=== PATIENT | female | born 1990 | race Two or more races ===

== ENCOUNTER 2021-12-08 07:00 | Inpatient (IN) ==
[2021-12-08] MEDS ORDERED: PITOCIN ONE ×2 (07:15→07:17)
[2021-12-08] MEDS ORDERED: D5 LR + PITOCIN 10 UNITS/L 10 UNITS/1,000 ML BAG IV ONE (07:15)
[2021-12-08] MEDS ORDERED: LR 1,000 ML IV 1,000 ML IV ONE ×4 (07:16→15:46)
[2021-12-08] MEDS ORDERED: D5 LR + PITOCIN 10 UNITS/L 10 UNITS/1,000 ML BAG IV PRN (08:00)
[2021-12-08] MEDS ORDERED: PITOCIN IVP ONE (08:05)
[2021-12-08] MEDS ORDERED: MORPHINE SULFATE INJ 2 MG INJ IVP PRN (08:05)
[2021-12-08] MEDS ORDERED: REGLAN INJ 10 MG VIAL IVP PRN (08:05)
[2021-12-08] MEDS ORDERED: PHENERGAN INJ 25 MG IM PRN ×2 (08:05→18:14)
[2021-12-08] MEDS ORDERED: LR 1,000 ML IV 1,000 ML with PITOCIN 20 UNITS IV ONE ×2 (08:10)
[2021-12-08 08:30] LABS: BILIRUBIN,URINE NEGATIVE (NEGATIVE); BLOOD/HEMOGLOBIN,URINE NEGATIVE (NEGATIVE); GLUCOSE, URINE NEGATIVE (NEGATIVE); KETONES,URINE NEGATIVE (NEGATIVE); LEUKOCYTE ESTERASE ,URINE NEGATIVE (NEGATIVE); NITRITES,URINE NEGATIVE (NEGATIVE); PROTEIN,URINE 1+ (NEGATIVE); UROBILINOGEN,URINE NORMAL (NORMAL)
[2021-12-08 08:33] LABS: APPEARANCE,URINE CLEAR (CLEAR); COLOR,URINE YELLOW (YELLOW)
[2021-12-08 08:39] LABS: BACTERIA,URINE NEGATIVE /HPF (NEGATIVE); RBC,URINE NONE SEEN /HPF (0-3); SQUAMOUS EPITHELIAL CELL,UR RARE /HPF (NEGATIVE)
[2021-12-08 08:43] LABS: BASOPHILS % (AUTO) 0.3 % (0.2-1.0); EOSINOPHILS # (AUTO) 0.1 x10^3/uL (0.0-0.2); EOSINOPHILS % (AUTO) 1.1 % (0.9-2.9); HEMATOCRIT 35.3 % (36.0-47.0); HEMOGLOBIN 12.2 g/dL (12.0-16.0); LYMPHOCYTES # (AUTO) 1.3 X10^3/uL (1.3-2.9); LYMPHOCYTES % (AUTO) 15.2 % (21.0-51.0); MEAN CORPUSCULAR HEMOGLOBIN 29.6 pg (27.0-34.0); MEAN CORPUSCULAR HGB CONC 34.5 g/dL (33.0-35.0); MEAN CORPUSCULAR VOLUME 85.9 fL (80.0-100.0); MEAN PLATELET VOLUME 8.7 fL (7.4-11.0); MONOCYTES # (AUTO) 0.5 x10^3/uL (0.3-0.8); MONOCYTES % (AUTO) 5.7 % (0.0-13.0); NEUTROPHILS # (AUTO) 6.7 x10^3/uL (2.2-4.8); NEUTROPHILS % (AUTO) 77.7 % (42.0-75.0); RED CELL DISTRIBUTION WIDTH 13.7 % (11.6-16.5); WHITE BLOOD COUNT 8.6 X10^3/uL (3.6-10.0)
[2021-12-08 09:10] LABS: BLOOD UREA NITROGEN 8 mg/dL (7-18); CALCIUM 8.3 mg/dL (8.5-10.1); CARBON DIOXIDE 21.9 mmol/L (21-32); CHLORIDE 107 mmol/L (98-107); CREATININE 0.43 mg/dL (0.55-1.02); SODIUM 138 mmol/L (136-145); eGFR NON BLACK RACES > 60 (>60)
[2021-12-08] MEDS ORDERED: STADOL INJ ONE ×3 (11:07→16:55)
[2021-12-08] MEDS: STADOL INJ IVP PRN ×3 (11:07→16:55)
[2021-12-08] MEDS: NS 500 ML IV 500 ML IV ONE ×2 (15:12→16:05)
[2021-12-08] MEDS ORDERED: MOTRIN TAB 800 MG PO PRN ×2 (18:14→18:50)
[2021-12-08] MEDS ORDERED: MILK OF MAGNESIA PO PRN (18:50)
[2021-12-08] MEDS ORDERED: ADACEL or BOOSTRIX TDaP VACCINE IM ONE (18:50)
[2021-12-08] MEDS ORDERED: AMBIEN PO PRN (18:50)
[2021-12-08] MEDS ORDERED: D5 1/2 NS 1,000 ML 1,000 ML with PITOCIN 20 UNITS IV SCH ×2 (19:00)
[2021-12-08] MEDS: DERMOPLAST PAIN RELIEF SPRAY TOP PRN (20:40)
[2021-12-09] MEDS: DERMOPLAST PAIN RELIEF SPRAY TOP PRN (03:30)
[2021-12-09 05:01] LABS: HEMOGLOBIN 9.8 g/dL (12.0-16.0)
[2021-12-09] MEDS: PRENATAL PLUS PO SCH (08:50)
[2021-12-10] MEDS: PRENATAL PLUS PO SCH (09:00)
[2021-12-10 11:52] VITALS: BP 107/60
== END 2021-12-10 11:15 | disposition home or self-care (01) | DRG 807 ==
LOC: LD 07:00 → MED/SURG 19:03
PROVIDERS: ADMIT Obstetrics & Gynecology Obstetrics; ATTEND Obstetrics & Gynecology Obstetrics
DX: Z20.822 Contact with and (suspected) exposure to COVID-19; Z37.0 Single live birth; O71.82 Other specified trauma to perineum and vulva; O26.893 Other specified pregnancy related conditions, third trimester; O70.0 First degree perineal laceration during delivery; Z3A.41 41 weeks gestation of pregnancy